=== PATIENT | female | born 1990 | race Caucasian/White ===

== ENCOUNTER 2017-02-18 14:49 | Observation (INO) | payer OTHER ==
--- NOTE | ~2017-02-18 | CN ---
Consultation Report [facility] [address] [place]. [address] NAME: MARTINE MCGILL : 86 STATUS : ADM Brad PAT#: [id number] AGE: 27 ADM/REG DATE : 02/18/17 MR#: [id number] REPORT SERV DATE: 02/19/17 DICTATED BY: ARLINE HENRDICKSON DATE: 02/19/17 REPORT STATUS : Draft TRANSCRIBED BY: PRINCE DATE: 02/19/17 NEUROLOGY CONSULTATION DATE OF CONSULTATION: 02/19/2017 REASON FOR CONSULTATION: Left arm weakness and "dizziness." HOSPITALIST: Remedios Benavidez APN. HISTORY OF PRESENT ILLNESS: The patient is a 27-year-old female, who came in to the hospital on 02/18/2017, complaining of lightheadedness, dizziness, and exhaustion. About a week ago, she developed some dysarthria that resolved. She also complained of left arm weakness. Upon further questioning, the patient mentioned that she has had left arm weakness and numbness off and on for years. 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 She states that her desk is organomegaly correct, however, while she is at work she will experience some numbness particularly in her left hand. Left Saturday at 10:00 a.m., she got up quickly from her workstation and experienced some lightheadedness and felt like she might pass out. She denied any vertiginous symptoms. She denied any ataxia. She also mentions that when she changes positions, she will feel "woozy." She described it as somewhat like vertigo, but things do not actually spin around. She will notice this when she turns her head too quickly from [id number]. She also mentioned that approximately a week ago, she had an episode of sinusitis and was placed on antibiotics. She also mentions that her hearing is somewhat diminished on the left side. PAST MEDICAL HISTORY: Hypothyroidism, frequent sinusitis, and obesity. PAST SURGICAL HISTORY: Tubal ligation, and atrial septal defect that was repaired at the age of 4. HOME MEDICATIONS: Flonase nasal spray, Claritin 10 mg daily, and [place] thyroid 90 mg daily. SOCIAL HISTORY: The patient is . She has four children and is in the process of adopting one more. 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 She does not smoke, drink, alcohol, or use illicits. FAMILY HISTORY: The patient's mother , she was an IV drug user, and alcoholic. Her father is 47 years old, he has hypertension. She has one sister and three brothers. One of her brother has autism and the other one has Perthes disease. REVIEW OF SYSTEMS: See HPI for pertinent positives. PHYSICAL EXAMINATION: Consultation Report [address] [address] NAME: MARTINE MCGILL : 86 STATUS : ADM Brad PAT#: [id number] AGE: 27 ADM/REG DATE : 02/18/17 MR#: [id number] REPORT SERV DATE: 02/19/17 DICTATED BY: ARLINE HENDRICKSON DATE: 02/19/17 REPORT STATUS : Draft TRANSCRIBED BY: PRINCE DATE: 02/19/17 VITAL SIGNS: The patient is a 27-year-old female, who stands 5 feet 6 inches tall and weighs 256 pounds. She is afebrile, heart rate 91, respiratory rate 18, O2 saturations on room air 99%, blood pressure 136/63. NEURO: The patient is alert. She is oriented x4. She is chatty. Speech is clear. Language fluent. Pupils 3 mm. PERRLA. Cranial nerves 2 through 12 are intact except nystagmus with left lateral gaze. Vision via confrontation is full in both patino. Finger- to-nose no ataxia. No pronator drift. No asterixis or tremor. Upper extremity strength is 5/5. Upper DTRs 1+ bilaterally. The patient does report slightly diminished sensation on the left hand in the fifth and lateral portion of the fourth finger. She also has a positive Tinel's over the median and ulnar nerve at the wrist. Phalen sign is positive. She also has tenderness over the ulnar nerve in the ulnar groove at the elbow. Thenar and hypothenar region shows no atrophy on the left or the right hand. Lower extremity strength is 5/5. Patellar reflexes 1+ bilaterally. Downgoing toes bilaterally. No reported sensory deficits. NECK: No carotid bruits, JVD, or thyromegaly. CHEST: Lung sounds are clear. LABORATORY DATA: CBC is normal. BMP normal. Cholesterol values are within normal range. Beta HCG is negative. MRI of the brain, questionable evidence of small micro bleeds, possible amyloid angiopathy or small septic infarcts. Echocardiogram LVEF 50%. Negative bubble, and negative thrombus. ASSESSMENT/PLAN: 1. Peripheral vertigo, secondary to sinusitis affecting mainly the left side. The patient will be prescribed meclizine 25 mg p.r.n. 2. Ulnar entrapment in the left arm most likely cubital tunnel syndrome, and carpal tunnel syndrome. The patient was instructed to obtain an elbow pad and wrist splint to be worn at night time. She is to follow up with her PCP. Thank you again for including us in consultation. We will follow with you. BEE/PRINCE Arline Hendrickson DNP, ACNP-BC / [id number] CC: Ny Pritchett,KORIN Benavidez NP
--- NOTE | ~2017-02-18 | DS ---
Discharge Summary [facility] [address] [place]. [address] NAME: MARTINE MCGILL : 86 STATUS : DIS Brad PAT#: [id number] AGE: 27 ADM/REG DATE : 02/18/17 MR#: [id number] REPORT SERV DATE: 02/20/17 DICTATED BY: DATE: REPORT STATUS : Draft TRANSCRIBED BY: MODL DATE: 02/19/17 ADMISSION DATE: 02/18/2017 DISCHARGE DATE: 02/19/2017 DISCHARGE DIAGNOSES: 1. Dizziness. 2. Left arm weakness. 3. History of anteroseptal defect with repairs at 4 years old. 4. Morbid obesity with body mass index of 41.3. CONSULT: Neurology, Arline Nava, WANDA, ACNP-BC. PROCEDURES AND IMAGIN. 02/18/2017, CT of the brain without contrast showed acute bilateral maxillary sinus disease. Otherwise unremarkable, noncontrast head CT. 2. 02/19/2017, MRI of the brain with and without contrast, showed several new small microbleeds. Questionable significance. No other sequelae such as damage or evidence for infarctions elsewhere. Concerns are for amyloid angiopathy or possibility of small septic emboli event in the past. 3. 02/18/2017, MRA-G of the head without contrast. a. Intracranial MRA is normal. Specifically, there is no evidence to support any concern for vascularity. Nothing to suggest an aneurysm. This is a patient who has had prior intrathoracic surgery not specified, suggesting a congenital defect, possible a septal defect which would expand the differential concerns for the microbleed seen in the possibility of sequelae or small vascular embolic events from a cardiac stroke. 4. MRA-G of the neck with contrast showed brachiocephalic MRA with maximum intensity when doing demonstrates normal carotid vertebral and subclavian arteries. 5. Echocardiogram showed left ejection fraction of 50%. HOSPITAL COURSE: Please see admission H and P by Dr. Albaro Campos for complete details regarding the patient's admission. This is a 27-year-old white female, presenting with dizziness and left arm weakness. The patient states that this has been happening on increasing basis. The patient has been taking her blood pressures at home and states that she has had occasional elevation and is concerned regarding her heart history. Highest blood pressure upon admission was 163/103. It was discussed with the patient that this would probably not be helpful for her to be on any type of medication from us and that she needed to follow up with primary care who could monitor her. The patient does have a primary care appointment on , 02/21/2017. The patient was encouraged to keep a blood pressure log in the morning and evening and any time that she was feeling dizzy or having numbness and tingling in her left upper extremity. The patient has been consulted by Neurologic and they have recommended a followup with Neurology in six to eight weeks. We also discussed weaning her caffeine and soda intake. 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 The patient also has morbid obesity with a BMI of Discharge Summary [place] [id number] [place]. [address] NAME: MARTINE MCGILL : 86 STATUS : DIS Brad PAT#: [id number] AGE: 27 ADM/REG DATE : 02/18/17 MR#: [id number] REPORT SERV DATE: 02/20/17 DICTATED BY: DATE: REPORT STATUS : Draft TRANSCRIBED BY: MODJorge L DATE: 02/19/17 41.3. We have discussed exercise and moderate weight loss and decreasing of her soda intake. DISCHARGE MEDICATIONS: The patient will be going home on Flonase two sprays in both nostrils daily, Claritin 10 mg daily, [place] Thyroid 90 mg daily, and she also was having a prescription for meclizine 25 mg q.6 hours p.r.n. dizziness. PHYSICAL EXAMINATION: VITAL SIGNS: The patient's blood pressure is 136/63, O2 saturation is 99% on room, temperature is 98.0, heart rate is 90, respirations are 18. HEENT: Head is atraumatic, normocephalic. Pupils are equal, round, and reactive to light and accommodation. HEENT: Sclerae are clear. Nonicteric. Good dentition. NECK: Supple with no obvious thyromegaly or lymphadenopathy. No obvious bruits. Neck veins are flat. CARDIAC: S1 and S2 with no obvious murmurs, rubs, or gallops. LUNGS: Lungs are clear to auscultation with normal respiratory effort. GI: Abdomen is soft and nontender with active bowel sounds in all four quadrants. The patient has normal bowel habitus. Has the patient has obese abdomen with large pannus. No palpable organomegaly. EXTREMITIES: No significant edema clubbing or cyanosis. Dorsalis pedis and posterior tibial pulses are palpable bilaterally. MUSCULOSKELETAL: Moves all extremities x4. She is ambulatory without assistance. No difficulties with balance. SKIN: Skin is warm and dry with normal color and turgor. NEURO: The patient is alert oriented x4, pleasant cooperative. Cranial nerves 2 are 2 through XII are intact. DISCHARGE INSTRUCTIONS: The patient is to follow up with her PCP on , 02/21/2017. The patient will be keeping a log of her blood pressure up until this time. Should the patient develop any more severe weakness or dizziness that is uncontrolled by her meclizine. She is too present to the ER. Approximately, 25 minutes has been spent coordinating discharge care of this patient including [id number] encounter and summarization of the discharge. DICTATED BY: Remedios Benavidez NP [facility] [place] Remedios Benavidez NP / [id number] Discharge Summary [address] [address] NAME: MARTINE MCGILL : 86 STATUS : DIS Brad PAT#: [id number] AGE: 27 ADM/REG DATE : 02/18/17 MR#: [id number] REPORT SERV DATE: 02/20/17 DICTATED BY: DATE: REPORT STATUS : Draft TRANSCRIBED BY: MODL DATE: 02/19/17 CC: Ny Pritchett ANDERS EUGENE
--- NOTE | ~2017-02-18 | HP ---
History And Physical [facility] [place] [address] [place]. [address] NAME: MARTINE MCGILL : 86 STATUS : ADM Brad PAT#: [id number] AGE: 27 ADM/REG DATE : 02/18/17 MR#: [id number] REPORT SERV DATE: 02/19/17 DICTATED BY: GENNARO LAM DATE: 02/18/17 REPORT STATUS : Draft TRANSCRIBED BY: PRINCE DATE: 02/18/17 DATE OF ADMISSION: 02/18/2017 CHIEF COMPLAINT: A 27-year-old female presenting with dizziness and left arm weakness. HISTORY OF PRESENTING ILLNESS: The patient's history was obtained through careful interview with the patient and her . The patient, for the last month, has felt occasional lightheadedness, dizziness, and various symptoms that have become increasingly alarming. She feels overall just tired, weak, and "exhausted" out of her norm. About a week ago, she developed some dysarthria that resolved and then today, she developed some left arm weakness for a period of time. One time, she also had an episode of confusion that lasted about an hour. There has been no facial droop. No double vision. No blurry vision. No gait disturbance. No other hemiparesis other than left arm weakness today. She has been checking her blood pressure at home and although she has never had hypertension before, her blood pressures have been ranging from about 140/90 to blood pressure today of 179/109. She has also checked her blood sugars and they have always been within normal limits (she does not have diabetes). Over the spring and summer, she has noticed some increased sinus pressure and sinus drainage and she describes a mild headache over the last month mostly in her sinuses about a 3/10 severity. REVIEW OF SYSTEMS: Otherwise, a 14-point review of systems was obtained and was negative. PAST MEDICAL HISTORY: 1. Hypothyroidism. 2. Sinusitis. PAST SURGICAL HISTORY: 1. Tubal ligation. 2. ASD repair at 4 years of age. ALLERGIES: NO KNOWN DRUG ALLERGIES. SOCIAL HISTORY: No tobacco abuse. No alcohol abuse. Lives in [place], [place]. Is . Has children of ages 4-year-old, 6-year-old, and 8-year-old, and now has adopted a 6-year-old as well. History And Physical [place] [address] [place]. [address] NAME: MARTINE MCGILL : 86 STATUS : ADM Brad PAT#: [id number] AGE: 27 ADM/REG DATE : 02/18/17 MR#: [id number] REPORT SERV DATE: 02/19/17 DICTATED BY: GENNARO LAM DATE: 02/18/17 REPORT STATUS : Draft TRANSCRIBED BY: PRINCE DATE: 02/18/17 FAMILY HISTORY: Grandmother with Sjogren's. Mother was an IV drug abuser and alcoholic, who of complications of these effects. Father is healthy. CURRENT MEDICATIONS: Include Flonase, Claritin, [place] Thyroid 90 mg p.o. daily. PHYSICAL EXAMINATION: VITAL SIGNS: Temperature 98.0, pulse 93, blood pressure 135/69, respiratory rate 15, O2 saturation 100% on room air. GENERAL: A pleasant, cooperative female. She is emotionally distressed by her presentation, but is not in any physical distress as far as I can tell. HEENT: Pupils equal, round, and reactive to light. No conjunctival pallor. No scleral icterus. Nares are patent. Oropharynx is clear of obstruction. Moist mucous membranes. NECK: Trachea midline. No thyromegaly. LYMPH: No cervical lymphadenopathy. No supraclavicular lymphadenopathy. NEUROLOGICAL: Cranial nerves 2 through 12 are intact and symmetrical. The patient has 5/5 strength in upper and lower extremities that is symmetrical. RESPIRATORY: Clear to auscultation at bases. No wheezes, rales, or rhonchi. Normal respiratory effort. CARDIOVASCULAR: Regular rate and rhythm. No murmurs, rubs, or gallops. No extremity edema is appreciated. ABDOMEN: Soft, nontender, nondistended. Normal bowel sounds auscultated throughout. No hepatosplenomegaly. DERMATOLOGICAL: Warm and dry extremities. No pallor. No cyanosis. PSYCHIATRIC: Normal affect. Good mood. Alert and oriented x3. LABORATORY DATA: White blood cell count 5.5, hemoglobin 12, hematocrit 37, platelets 169. Sodium 142, potassium 3.7, chloride 108, bicarb 29, BUN 10, creatinine 0.7, glucose 85. Troponin negative. Serum test negative. INR 1.0. Urinalysis negative for infection. STUDIES: 1. Chest x-ray by my own evaluation shows no acute cardiopulmonary process. 2. EKG by my own evaluation shows sinus rhythm. T-wave inversions in leads V1 and V2. 3. CT scan of the sinuses and brain shows maxillary sinusitis, but no acute intracranial process. ASSESSMENT AND PLAN: 1. Dizziness, left arm hemiparesis. Negative CT scan of the brain. We will check an MRI of the brain. Check an MRA. Check an echocardiogram. Check fasting lipid panel. Check telemetry. Check an EEG. Place on aspirin. Obtain Neurology consult. 2. History of atrial septal defect with repair. We will check an echocardiogram. YRN/PRINCE History And Physical [address] [address] NAME: MARTINE MCGILL : 86 STATUS : ADM Brad PAT#: [id number] AGE: 27 ADM/REG DATE : 02/18/17 MR#: [id number] REPORT SERV DATE: 02/19/17 DICTATED BY: GENNARO LAM DATE: 02/18/17 REPORT STATUS : Draft TRANSCRIBED BY: PRINCE DATE: 02/18/17 Gennaro Lam M.D. / [id number] CC: Ander Costa M.D.
[2017-02-18 20:09] LABS: BASOPHILS 0.2 %; BASOPHILS ABSOLUTE 0.01 10/3/uL (0.0-0.16); EOSINOPHILS 0.9 %; EOSINOPHILS ABSOLUTE 0.05 10/3/uL (0.0-0.53); HEMATOCRIT 37.4 % (36.0-48.0); HEMOGLOBIN 12.3 g/dL (12.0-16.0); LYMPHOCYTES 31.7 %; LYMPHOCYTES ABSOLUTE 1.73 10/3/uL (0.67-4.30); MEAN CORPUS HGB CONC 32.9 g/dL (32.0-36.0); MEAN CORPUSCULAR HEMOGLOB 27.2 pg (26.0-34.0); MEAN CORPUSCULAR VOLUME 82.7 fL (80-100); MEAN PLATELET VOLUME 11.3 fL (9.2-13.0); MONOCYTES 5.3 %; MONOCYTES ABSOLUTE 0.29 10/3/uL (0.21-1.20); NEUTROPHILS 61.9 %; NEUTROPHILS ABSOLUTE 3.37 10/3/uL (2.02-8.40); PLATELET COUNT 169 10/3/uL (150-400); RBC DISTRIBUTION WIDTH 13.8 % (12.0-16.0); RED CELL COUNT 4.52 10/6/uL (4.0-5.6); WHITE BLOOD CELLS 5.5 10/3/uL (4.5-10.5)
[2017-02-18 20:10] LABS: MANUAL DIFF NO %
[2017-02-18 20:16] LABS: ASCORBIC ACID (UR NOT ORDER) NEG (NEG); BILIRUBIN, URINE NEGATIVE (NEG); ER URINALYSIS TAT 0 Hrs 07 Mins; KETONE, URINE NEGATIVE (NEG); LEUKOCYTE ESTERASE(NOT OR TRACE (NEG); NITRITE (URINE) NEG (NEG); WBC (NOT ORDERED) (RFLEX) 2 (0-5)
[2017-02-18 20:17] LABS: PARTIAL THROMBO TIME 29.1 SEC (22.5-37.2)
[2017-02-18 20:46] LABS: BUN (BLOOD UREA NITROGEN) 10 MG/DL (6-23); CHEST PAIN PROFILE TAT 0 Hrs 43 Mins; CHLORIDE, SERUM 108 MMOL/L (96-112); CO2 (CARBON DIOXIDE) 29 MMOL/L (24-34); CREATININE 0.69 MG/DL (0.55-1.02); GFR AFRICAN AMERICAN 136 ML/MIN (>=60); GFR NON AFRICAN AMERICAN 118 ML/MIN (>=60); GLUCOSE, SERUM 85 MG/DL (60-99); POTASSIUM, SERUM 3.7 MMOL/L (3.5-5.3); SODIUM, SERUM 142 MMOL/L (135-148); TROPONIN I <0.02 NG/ML (<0.05)
[2017-02-18] MEDS ORDERED: ARMOUR THYRO90 MG PO (21:17)
[2017-02-18] MEDS ORDERED: FLONASE NAS (21:17)
[2017-02-18] MEDS ORDERED: CLARIT10 PO (21:17)
[2017-02-19 04:35] LABS: BASOPHILS 0.2 %; BASOPHILS ABSOLUTE 0.01 10/3/uL (0.0-0.16); EOSINOPHILS 1.7 %; EOSINOPHILS ABSOLUTE 0.08 10/3/uL (0.0-0.53); HEMATOCRIT 36.3 % (36.0-48.0); HEMOGLOBIN 12.2 g/dL (12.0-16.0); LYMPHOCYTES 37.3 %; LYMPHOCYTES ABSOLUTE 1.71 10/3/uL (0.67-4.30); MEAN CORPUS HGB CONC 33.6 g/dL (32.0-36.0); MEAN CORPUSCULAR HEMOGLOB 27.8 pg (26.0-34.0); MEAN CORPUSCULAR VOLUME 82.7 fL (80-100); MEAN PLATELET VOLUME 10.8 fL (9.2-13.0); MONOCYTES 6.8 %; MONOCYTES ABSOLUTE 0.31 10/3/uL (0.21-1.20); NEUTROPHILS ABSOLUTE 2.48 10/3/uL (2.02-8.40); PLATELET COUNT 157 10/3/uL (150-400); RBC DISTRIBUTION WIDTH 13.7 % (12.0-16.0); RED CELL COUNT 4.39 10/6/uL (4.0-5.6); WHITE BLOOD CELLS 4.6 10/3/uL (4.5-10.5)
[2017-02-19 04:37] LABS: MANUAL DIFF NO %
[2017-02-19 04:45] LABS: PROTIME (NOT ORD) 13.2 SEC (12.0-14.5)
[2017-02-19 04:46] LABS: PARTIAL THROMBO TIME 30.3 SEC (22.5-37.2)
[2017-02-19 05:07] LABS: ALBUMIN 3.5 G/DL (3.5-5.0); ALKALINE PHOSPHATASE 85 U/L (45-117); BUN (BLOOD UREA NITROGEN) 10 MG/DL (6-23); CALCIUM, SERUM 8.8 MG/DL (8.5-10.4); CHLORIDE, SERUM 109 MMOL/L (96-112); CHOL/HDL RATIO(NOT ORDER) 3.1 (0-5); CHOLESTEROL 142 MG/DL (< 200); CO2 (CARBON DIOXIDE) 26 MMOL/L (24-34); CREATININE 0.81 MG/DL (0.55-1.02); FREE T4 0.68 NG/DL (0.76-1.46); GFR AFRICAN AMERICAN 114 ML/MIN (>=60); GFR NON AFRICAN AMERICAN 98 ML/MIN (>=60); GLOBULIN 3.6 G/DL (2.5-4.1); GLUCOSE, SERUM 93 MG/DL (60-99); HDL CHOLESTEROL 46 MG/DL (> 49); LDL CHOLESTEROL 75 MG/DL (< 130); NON-HDL CHOLESTEROL 96 MG/DL (< 160); POTASSIUM, SERUM 3.7 MMOL/L (3.5-5.3); SGOT(AST) 15 U/L (5-40); SGPT(ALT) 20 U/L (5-65); SODIUM, SERUM 140 MMOL/L (135-148); TOTAL BILIRUBIN 0.3 MG/DL (0-1.2); TOTAL PROTEIN 7.1 G/DL (6.0-8.5); TRIGLYCERIDE 108 MG/DL (< 150); TROPONIN I <0.02 NG/ML (<0.05)
[2017-02-19] MEDS ORDERED: MCZ25 PO (16:40)
== END 2017-02-19 17:04 | disposition home or self-care (01) ==
LOC: ER 14:49 → CDU1 21:07
PROVIDERS: Emergency Medicine; Internal Medicine
DX: R42 Dizziness and giddiness (principal); R53.1 Weakness; E03.9 Hypothyroidism, unspecified; E66.01 Morbid (severe) obesity due to excess calories; Z98.51 Tubal ligation status; Z98.890 Other specified postprocedural states; Z79.899 Other long term (current) drug therapy; Z68.41 Body mass index [BMI] 40.0-44.9, adult; H81.399 Other peripheral vertigo, unspecified ear; J32.9 Chronic sinusitis, unspecified
CPT/HCPCS: 70450; 70544; 70548; 70553; 71020; 80048; 80053; 80061; 81001; 83735; 83880; 84439; 84443; 84484; 84703; 85025; 85610; 85730; 93005; 93306; 96372; 99285; A9270-GY; A9577; G0378